=== PATIENT | female | born 2000 | race Caucasian/White ===

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

== ENCOUNTER 2023-04-01 13:03 | Emergency (ER) | payer OTHER, SELFPAY ==
--- NOTE | ~2023-04-01 | XR_ITS ---
EXAMINATION: XR chest 2V DATE: 04/01/2023 14:09 INDICATION: Multiple syncopal episodes TECHNIQUE: PA and lateral views of the chest were obtained. COMPARISON: None FINDINGS: The lungs are clear with no focal airspace opacities, pulmonary edema, pleural effusion or pneumothor ax. The cardiomediastinal silhouette is normal. Mild thoracic levocurvature. IMPRESSION: 1. No acute cardiopulmonary disease. Reviewed, dictated and finalized at location A.
--- NOTE | ~2023-04-01 | CT_ITS ---
EXAMINATION: CT BRAIN W/O DATE: 04/01/2023 14:04 INDICATION: Syncope. Loss of consciousness. TECHNIQUE: Computed tomography (CT) of the head was performed without intravenous contrast. The dose- length product was 605.33 mGy-cm. Automated exposure control and iterative reconstruction technique w ere employed. COMPARISON: No prior studies for comparison. FINDINGS: Normal brain parenchymal volume for age. Normal ugalde-white differentiation. No acute intrac ranial hemorrhage, infarction, mass or mass effect. No ventriculomegaly or midline shift. Midline sagittal images demonstrate a normal corpus callosum, c raniovertebral junction and sella turcica. Basilar cisterns are patent. Paranasal sinuses and mastoids are pneumatized. No depressed skull fractures. IMPRESSION: 1. No acute intracranial abnormality. Reviewed, dictated and finalized at location B.
[2023-04-01 13:06] VITALS: BP 104/77; PULSE 76; RESP 16; TEMP 36.6; O2SAT 100
--- NOTE | 2023-04-01 13:09 | ECG_ITS ---
Measurements Intervals [place] Rate: 75 P: 43 NE: 145 QRS: 74 QRSD: 86 T: 47 QT: 359 QTc: 401 Interpretive Statements SINUS RHYTHM INCOMPLETE RIGHT BUNDLE BRANCH BLOCK BORDERLINE ECG NO PREVIOUS ECG AVAILABLE FOR COMPARISON Electronically Signed On 04-01-2023 13:34:36 CDT by Nelson Escobar D.O.
[2023-04-01 13:37] LABS: Basophils Percent Auto 0.5 % (0.2-1.2); Eosinophils Absolute Auto 0.1 K/mm3 (0-0.3); Eosinophils Percent Auto 0.6 % (0-4.4); Hematocrit 39.5 % (37.0-47.0); Hemoglobin 13.2 g/dL (12.0-15.0); Immature Granulocyte Absolute 0.02 K/mm3 (0.00-0.031); Immature Granulocyte Percent A 0.2 % (0-0.5); Lymphocytes Absolute Auto 2.73 K/mm3 (0.9-3.2); Lymphocytes Percent Auto 33.6 % (18.3-44.2); Mean Corpuscular HGB Conc 33.4 g/dl (32-36); Mean Corpuscular Hemoglobin 32.9 pg (26-34); Mean Corpuscular Volume 98.5 fl (80-100); Mean Platelet Volume 10.3 fl (7.4-10.4); Monocytes Absolute Auto 0.5 K/mm3 (0.1-0.6); Monocytes Percent Auto 6.3 % (2.6-8.5); Neutrophils Absolute Auto 4.8 K/mm3 (1.3-6.7); Neutrophils Percent Auto 58.8 % (45.5-73.1); Platelet Count Result 233 k/mm3 (150-375); Red Blood Count 4.01 M/mm3 (4.2-5.4); Red Cell Distribution Width 12.3 % (11.5-14.5); White Blood Count 8.1 K/mm3 (4.5-10.0)
--- NOTE | 2023-04-01 13:42 | ED.SYNCOPE ---
HPI - Syncope General Chief Complaint: Syncope Stated Complaint: work related injury, syncopal episode, hit head Time Seen by Provider: 04/01/23 13:11 History of Present Illness HPI narrative: 22-year-old female no medical problems presents to the emergency room for evaluation of syncopal episode that occurred at work. Patient states that she has a history of syncope and collapse when she was standing for extended periods of time. Patient denies any injuries or trauma. Patient denies chest pain, shortness of breath, palpitations. Denies any alcohol or recreational drug use. Patient states that she attempts to keep yourself hydrated. Denies any recent illnesses. Related Data Allergies Allergy/AdvReac Type Severity Reaction Status Date / Time No Known Allergies Allergy Verified 11/15/20 10:16 Review of Systems Review of Systems: CONSTITUTIONAL: Denies fever, chills, or sweats. EYES: Denies visual changes, redness, or discharge. ENT: Denies rhinorrhea, congestion, sore throat, or otalgia. CARDIOVASCULAR: Denies chest pain, palpitations, or edema. RESPIRATORY: Denies cough or dyspnea. GASTROINTESTINAL: Denies abdominal pain, nausea, vomiting, or diarrhea. GENITOURINARY: Denies dysuria or hematuria. SKIN: Denies rash or itching. MUSCULOSKELETAL: Denies back pain, joint pain, or myalgia. NEUROLOGIC: Reports syncope PSYCHIATRIC: Denies anxiety or depression. PMFSH Past Medical History Medical History No significant past medical history Surgical History Surgical History H/O hernia repair Family History Family History Other No significant family history Social History Social History Smoking status: Never smoker Alcohol intake: never Substance use: never Living arrangements: with family Occupation/Education: student Exam Narrative: GENERAL: Well-appearing, well-nourished, no physical limitations, and in no acute distress. HEAD: Normocephalic, atraumatic. EYES: Conjunctivae normal, PERRLA and EOMI. NECK: Supple. CHEST: Clear to auscultation. No respiratory distress. No wheezes rales or rhonchi. HEART: Regular rate and rhythm. No murmur heard. Normal peripheral pulses EXTREMITIES: Normal range of motion. No edema. No clubbing or cyanosis SKIN: Warm, dry, no rash. No noted wounds NEURO: No focal deficits. Alert and oriented x3. MAEW. CN's II-XI intact bilaterally, normal gait PSYCH: Cooperative. Normal mood and affect. Course Vital Signs Vital signs: Vital Signs Temperature 36.6 C 04/01/23 13:06 Pulse Rate 76 04/01/23 13:06 Respiratory Rate 16 04/01/23 13:06 Blood Pressure 104/77 04/01/23 13:06 Pulse Oximetry 100 04/01/23 13:06 Oxygen Delivery Room Air 04/01/23 13:06 Temperature 36.6 C 04/01/23 13:06 Pulse Rate 73 04/01/23 14:45 Respiratory Rate 26 H 04/01/23 14:45 Blood Pressure 101/85 04/01/23 14:45 Pulse Oximetry 100 04/01/23 14:45 Oxygen Delivery Room Air 04/01/23 13:06 MDM - Syncope MDM Narrative Medical decision making narrative: 22-year-old female presented emergency room for evaluation of syncopal event while at work. Patient denies any known injuries associated with the fall. Vital signs are stable during her ER course of stay. Lab work was unremarkable. CT scan showed no intracranial abnormality. EKG showed no signs of ischemia. Patient likely experiencing some autonomic dysfunction. We will have her follow-up with her primary care provider. Lab Data 04/01/23 13:26 04/01/23 13:26 Labs: Lab Results 04/01/23 04/01/23 Range/Units 13:26 13:52 WBC 8.1 (4.5-10.0) K/mm3 RBC 4.01 L (4.2-5.4) M/mm3 Hgb 13.2 (12.0-15.0) g/dL Hct 39.5 (37.0-47.0) % MCV 98.
[2023-04-01 13:56] LABS: Alanine Aminotransferase 16 U/L (6-35); Albumin Level 4.7 g/dL (3.5-5.1); Alkaline Phosphatase 44 U/L (38-126); Anion Gap 6 mmol/L (8-16); Aspartate Amino Transferase 24 U/L (14-36); Bilirubin,Total 0.6 mg/dL (0.2-1.3); Blood Urea Nitrogen 14 mg/dL (7-17); Carbon Dioxide 26 mmol/L (22-30); Chloride 103 mmol/L (98-107); Estimated CRCL calculation 81 ml/min; Estimated Glomerular Filt Rate > 60; Glucose 85 mg/dL (65-110); Potassium 3.5 mmol/L (3.4-5.0); Sodium 135 mmol/L (137-145)
[2023-04-01 14:03] LABS: Appearance Urine Cloudy (Clear); Bacteria Urine None Seen /hpf; Bilirubin Urine Negative (Negative); Blood Urine Negative (Negative); Color Urine Yellow (Yellow); Glucose Urine UA Negative (Negative); Ketones Urine 1+ mg/dL (Negative); Leukocyte Esterase Ur Trace LEU/UL (Negative); Nitrate Urine Negative (Negative); Non Pathogenic Casts 0-2; Protein Urine Negative (Negative); Specific Grav Ur 1.024 (1.001-1.035); Squamous Epithelial Cell Urine Moderate /hpf (Few); WBC Urine 0-5 /hpf; pH Urine 5.5 (5.0-9.0)
[2023-04-01 14:12] LABS: Troponin I < 0.012 ng/mL (0.000-0.034)
[2023-04-01 14:14] LABS: Add Urine Microscopic? NO
[2023-04-01 14:16] VITALS: BP 142/75; PULSE 64; RESP 24; O2SAT 100
[2023-04-01 14:31] VITALS: BP 112/72; PULSE 68; RESP 20; O2SAT 100
[2023-04-01 14:45] VITALS: BP 101/85; PULSE 73; RESP 26; O2SAT 100
[2023-04-01 15:01] VITALS: BP 103/67; PULSE 67; RESP 24; O2SAT 100
== END 2023-04-01 15:16 | disposition home or self-care (01) ==
PROVIDERS: Emergency Medicine; Emergency Provider Nurse Practitioner Family; PCP Family Medicine
DX: R55 Syncope and collapse (principal); I45.10 Unspecified right bundle-branch block
CPT/HCPCS: 36415; 70450; 71046; 80053; 81003; 81025; 84484; 85025; 93005; 99284